=== PATIENT | male | born 1995 | race Caucasian/White ===

== ENCOUNTER 2021-08-26 20:12 | Emergency (ER) | payer OTHER ==
[~2021-08-26] VITALS: Ht 190.5 cm; Wt 54.4 kg
[2021-08-26 23:19] LABS: BASOPHIL 0.5 % (0-2); HCT 39.5 % (42.0-52.0); HGB 12.6 g/dl (13.2-18.0); LYMPHOCYTE 29.6 % (15-48); MCH 26.4 pg (25.0-31.0); MCHC 31.9 g/dL (32.0-36.0); MCV 82.6 fL (78.0-100.0); MPV 10.6 fL (6.0-9.5); NEUTROPHIL 59.6 % (41-80); NRBC 0; PLT 217 K/uL (150-400); RBC 4.78 M/uL (4.70-6.00); RDW 14.3 % (11.5-14.0); WBC 7.9 K/uL (4.0-10.5)
[2021-08-26 23:46] LABS: ALBUMIN 3.7 g/dL (3.4-5.0); BILIRUBIN - TOTAL 0.2 mg/dL (0.2-1.0); BUN/CREAT RATIO (CALC) 16.2 RATIO; CREATININE 0.99 mg/dL (0.67-1.17); POTASSIUM 3.9 mmol/L (3.5-5.1); TOTAL PROTEIN 7.7 g/dL (6.4-8.2)
[2021-08-27 00:04] LABS: LACTIC ACID 1.2 mmol/L (0.4-1.9)
[2021-08-27 01:19] LABS: CORONAVIRUS 2019 SARS-COV-2 NEGATIVE (NEGATIVE); INFLUENZA A NAA NEGATIVE (NEGATIVE)
[2021-08-27 03:43] LABS: AMPHETAMINES NEGATIVE (NEGATIVE); BARBITURATES NEGATIVE (NEGATIVE); ECSTASY (MDMA) NEGATIVE (NEGATIVE); MARIJUANA (THC) NEGATIVE (NEGATIVE); METHADONE NEGATIVE (NEGATIVE); OPIATES NEGATIVE (NEGATIVE); OXYCODONE NEGATIVE (NEGATIVE)
== END 2021-08-27 06:05 | disposition other institution (70) ==
LOC: FER 20:12
PROVIDERS: Emergency Medicine
DX: R07.89 Other chest pain (principal); R50.9 Fever, unspecified; F17.200 Nicotine dependence, unspecified, uncomplicated; Z20.822 Contact with and (suspected) exposure to COVID-19
CPT/HCPCS: 36415; 71275; 80053; 80305; 83605; 84484; 85025; 86140; 87040; 93005; J1790; J1885; J2250; J2405; J2543; J3370; J7030; J7050; Q9967; U0002